=== PATIENT | female | born 1980 | race Caucasian/White ===

== ENCOUNTER 2021-01-11 10:32 | Outpatient (CLI) | payer BC, SELFPAY ==
--- NOTE | 2021-01-11 12:00 | NEURO_ITS ---
Impression: # Complains of numbness of left lower extremity. # Normal nerve conduction study including F-waves . # Normal needle/EMG exam. # Clinical correlation recommended and other etiologies need to be considered. Nerve Conduction Studies Anti Sensory Summary Table Stim Site NR Peak (ms) P-T Amp (?V) Site1 Site2 Delta-P (ms) Dist (cm) Danny (m/s) Left Sup Fibular Anti Sensory (Ant Lat Mall) 14 cm 3.4 19.9 14 cm Ant Lat Mall 3.4 16.0 47 Right Sup Fibular Anti Sensory (Ant Lat Mall) 14 cm 3.5 9.6 14 cm Ant Lat Mall 3.5 16.0 46 Left Sural Anti Sensory (Lat Mall) Calf 3.9 6.6 Calf Lat Mall 3.9 16.0 41 Right Sural Anti Sensory (Lat Mall) Calf 4.0 9.4 Calf Lat Mall 4.0 16.0 40 Motor Summary Table Stim Site NR Onset (ms) O-P Amp (mV) Site1 Site2 Delta-0 (ms) Dist (cm) Danny (m/s) Left Peroneal Motor (Vastus Med) Ankle 4.1 1.6 Popit Ankle 7.4 37.0 50 Popit 11.5 1.5 Right Peroneal Motor (Vastus Med) Ankle 3.8 1.7 Popit Ankle 7.5 35.0 47 Popit 11.3 1.5 Left Tibial Motor (Abd Ballard Brev) Ankle 4.1 3.6 Knee Ankle 8.8 41.0 47 Knee 12.9 0.6 Right Tibial Motor (Abd Ballard Brev) Ankle 4.1 3.9 Knee Ankle 8.2 38.0 46 Knee 12.3 5.0 F Wave Studies NR F-Lat (ms) L-R F-Lat (ms) Left Peroneal (Mrkrs) (EDB) 53.57 0.35 Right Peroneal (Mrkrs) (EDB) 53.92 0.35 Left Tibial (Mrkrs) (Abd Hallucis) 54.10 0.52 Right Tibial (Mrkrs) (Abd Hallucis) 54.61 0.52 EMG Side Muscle Nerve Root Ins Act Fibs Amp Dur Recrt Comment Right AntTibialis Dp Br Fibular L4-5 Nml Nml Nml Nml Nml Right Gastroc Tibial S1-2 Nml Nml Nml Nml Nml Right Fibularis Long Sup Br Fibular L5-S1 Nml Nml Nml Nml Nml Right Flex Dig Long Tibial L5-S2 Nml Nml Nml Nml Nml Right Ext Dig Brev Dp Br Fibular L5, S1 Nml Nml Nml Nml Nml Left AntTibialis Dp Br Fibular L4-5 Nml Nml Nml Nml Nml Left Gastroc Tibial S1-2 Nml Nml Nml Nml Nml Left Fibularis Long Sup Br Fibular L5-S1 Nml Nml Nml Nml Nml Left Flex Dig Long Tibial L5-S2 Nml Nml Nml Nml Nml Left Ext Dig Brev Dp Br Fibular L5, S1 Nml Nml Nml Nml Nml MTDD
== END 2021-01-11 10:33 | disposition home or self-care (01) ==
LOC: ANHNEURO 10:34
PROVIDERS: PCP Family Medicine; Visit Provider Physician Assistant
DX: R20.0 Anesthesia of skin (principal); R20.2 Paresthesia of skin
CPT/HCPCS: 95886; 95910

== ENCOUNTER → 2021-04-29 07:25 | Outpatient (CLI) | payer BC, SELFPAY ==
--- NOTE | ~2021-04-29 | US_ITS ---
EXAMINATION: US venous doppler [facility] DATE: 04/29/2021 08:00 INDICATION: Left lower limb pain and swelling TECHNIQUE: Nichole scale images without and with compression and Doppler images of the left lower extrem ity veins were obtained. COMPARISON: 06/02/2004 FINDINGS: The left common femoral vein, profunda femoral vein, femoral vein, popliteal vein, peroneal trunk, posterior tibial veins, and greater saphenous vein are patent. IMPRESSION: 1. Patent left lower extremity veins. No evidence of deep venous thrombosis. Reviewed, dictated and finalized at location A.
== END ==
PROVIDERS: PCP Family Medicine; Visit Provider Physician Assistant
DX: M79.605 Pain in left leg (principal)
CPT/HCPCS: 93971

== ENCOUNTER → 2021-09-12 15:36 | Outpatient (CLI) | payer BC, SELFPAY ==
--- NOTE | ~2021-09-12 | MM_ITS ---
EXAMINATION: MM screening sami BI w andrea HISTORY: Screening TECHNIQUE: Craniocaudal and mediolateral oblique 3-D tomosynthesis images were obtained and synthetic 2-D images were generated. CAD analysis was submitted and interpreted. COMPARISON: No prior mammogram is available for comparison at this institution. BREAST PARENCHYMAL COMPOSITION: Breast composed of scattered areas of fibroglandular density FINDINGS: There are bilateral breast asymmetries centered in the upper outer quadrants of both breast s. There are no suspicious calcifications. IMPRESSION: 1. Bilateral breast asymmetries. 2. Additional mammographic views and possible breast ultrasound are recommended. BI-RADS Category 0: Incomplete: Needs additional imaging evaluation. Reviewed, dictated and finalized at location A. IMPRESSION: 1. Bilateral breast asymmetries. 2. Additional mammographic views and possible breast ultrasound are recommended . BI-RADS Category 0: Incomplete: Needs additional imaging evaluation.
== END ==
PROVIDERS: Visit Provider Obstetrics & Gynecology
DX: Z12.31 Encounter for screening mammogram for malignant neoplasm of breast (principal); R92.8 Other abnormal and inconclusive findings on diagnostic imaging of breast
CPT/HCPCS: 77063; 77067

== ENCOUNTER → 2021-10-20 08:07 | Outpatient (CLI) | payer BC, SELFPAY ==
--- NOTE | ~2021-10-20 | MMUS_ITS ---
EXAMINATION: MM diagnostic sami BI w andrea, US breast BI limited HISTORY: Follow-up breast asymmetries TECHNIQUE: Additional 3-D tomosynthesis images of the breasts were performed and synthetic 2-D images were generated. CAD analysis was submitted and interpreted. High resolution limited bilateral breast ultrasound was performed. COMPARISON: 09/12/2021 BREAST PARENCHYMAL COMPOSITION: Breast composed of scattered areas of fibroglandular density. FINDINGS: MAMMOGRAPHIC FINDINGS: There is a mass in the upper outer quadrant of the right breast measuring approximately 12 mm. There are no suspicious masses, calcifications or architectural distortion in the left breast to suggest ma lignancy. ULTRASOUND: Limited right breast ultrasound: At 10:00, 3 cm from the nipple, there is an 8 mm cyst. At 10:00, 4 c m from the nipple there is an 8 mm cyst. No suspicious sonographic abnormalities of the right breast to suggest malignancy. Limited left breast ultrasound: At 2:00, 1 cm from the nipple there is a 3 mm cyst. At 5:00, 3 cm fro m the nipple there is a 6 mm cyst. No suspicious masses to suggest malignancy. IMPRESSION: 1. No evidence for malignancy in either breast. Benign findings. 2. Routine yearly screening mammogram and regular clinical breast examination are recommended. BI-RADS Category 2: Benign finding(s). Reviewed, dictated and finalized at location A. OGRAPH DESIGNER IMPRESSION: 1. No evidence for malignancy in either breast. Benign findings. 2. Routine yearly screening mammogram and regular clinical breast examination a re recommended. BI-RADS Category 2: Benign finding(s).
== END ==
PROVIDERS: Visit Provider Obstetrics & Gynecology
DX: R92.8 Other abnormal and inconclusive findings on diagnostic imaging of breast (principal)
CPT/HCPCS: 76642; 77062; 77066; G0279

== ENCOUNTER 2022-03-13 08:21 | Outpatient (CLI) | payer BC, SELFPAY ==
--- NOTE | ~2022-03-13 | XR_ITS ---
EXAMINATION: XR foot LT min 3V DATE: 03/13/2022 08:41 INDICATION: Left foot pain TECHNIQUE: Dorsoplantar, lateral, and 2 oblique views of the left foot were obtained. COMPARISON: None FINDINGS: Bone alignment is normal. There is no fracture. There is mild osteoarthritis at the first m etatarsophalangeal joint as well as several interphalangeal joints. Posterior and plantar calcaneal d espite are noted. The soft tissues are unremarkable. IMPRESSION: 1. No acute osseous abnormality. Reviewed, dictated and finalized at location A.
== END 2022-03-13 08:22 | disposition home or self-care (01) ==
PROVIDERS: PCP Family Medicine; Visit Provider Nurse Practitioner Gerontology
DX: M79.672 Pain in left foot (principal)
CPT/HCPCS: 73630

== ENCOUNTER → 2022-04-20 14:15 | Outpatient (CLI) | payer BC, SELFPAY ==
--- NOTE | ~2022-04-20 | XR_ITS ---
XR knee LT 3V DATE: 04/20/2022 14:31 INDICATION: Left knee effusion TECHNIQUE: Hankins and standing AP and PA views COMPARISON: None FINDINGS: There is moderate moderate loss of height of the medial compartment joint space. Lateral co mpartment joint space is well preserved. There is minimal periarticular spurring of the patella. There is minimal superior pole patellar enthe sopathy at the quadriceps tendon insertion. No fracture or dislocation, periosteal reaction or bone destruction. Small suprapatellar knee joint e ffusion may be present. No radiopaque intra-articular loose body or chondrocalcinosis. IMPRESSION: Possible small suprapatellar knee joint effusion Mild patellofemoral and medial compartment osteoarthritis Reviewed, dictated and finalized at location A.
== END ==
PROVIDERS: PCP Family Medicine; Visit Provider Family Medicine
DX: M25.462 Effusion, left knee (principal); M17.12 Unilateral primary osteoarthritis, left knee
CPT/HCPCS: 73562

== ENCOUNTER 2022-08-24 08:01 | Outpatient (CLI) | payer BC, SELFPAY ==
--- NOTE | ~2022-08-24 | US_ITS ---
EXAMINATION:US venous doppler LE LT INDICATION:Varicose veins. Lower extremity pain. TECHNIQUE: Multiple grayscale, color flow and Doppler images of the left lower extremity deep venous systems were obtained and reviewed. COMPARISON:04/29/2021 FINDINGS: The common femoral, superficial femoral and popliteal veins demonstrate normal respiratory variation, augmentation and compressibility. Color flow is also seen within the posterior tibial, pe roneal, greater saphenous and profunda veins. IMPRESSION: 1: No lower extremity deep venous thrombosis. Reviewed, dictated and finalized at location A.
== END 2022-08-24 08:02 | disposition home or self-care (01) ==
PROVIDERS: PCP Family Medicine
DX: I83.813 Varicose veins of bilateral lower extremities with pain (principal); Z48.812 Encounter for surgical aftercare following surgery on the circulatory system
CPT/HCPCS: 93971

== ENCOUNTER 2022-08-31 07:54 | Outpatient (CLI) | payer BC, SELFPAY ==
--- NOTE | ~2022-08-31 | US_ITS ---
EXAMINATION: US venous doppler [facility] DATE: 08/31/2022 08:27 INDICATION: Varicose veins of both lower extremities. TECHNIQUE: Grayscale ultrasound images without and with compression and Doppler ultrasound images of the left lower extremity veins were obtained. COMPARISON: Ultrasound 08/24/2022, 04/29/2021 FINDINGS: The visualized portions of left common femoral vein, profunda (deep) femoral vein, femoral vein, popl iteal vein, peroneal veins, and posterior tibial veins are patent. There is total occlusion of left g reater saphenous vein from the proximal thigh to the distal thigh. IMPRESSION: 1. 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 2. No deep venous thrombosis. Reviewed, dictated and finalized at location A. IMPRESSION: 1. 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 2. No deep venous thrombosis.
== END 2022-08-31 07:55 | disposition home or self-care (01) ==
PROVIDERS: PCP Family Medicine
DX: I83.93 Asymptomatic varicose veins of bilateral lower extremities (principal); I82.492 Acute embolism and thrombosis of other specified deep vein of left lower extremity
CPT/HCPCS: 93971

== ENCOUNTER 2022-10-16 01:49 | Day surgery (SDC) | payer BC, SELFPAY ==
[2022-10-03 13:14] VITALS: BMI 34.3
--- NOTE | 2022-10-16 08:11 | WPDANESEPPF ---
Anes - Initial Pre Proc Eval Procedure: Operation Date: 10/16/22 11:00 Proposed Procedures p Esophagogastroduodenoscopy EGD - Alcides Madison MD Date/Time: 10/16/22 08:11 Surgeon: Alcides Madison MD Pre Op Diagnosis: dysphagia Patient Data Age: 42 Gender: F Height: 1.6 m Weight: 88 kg Allergies Allergy/AdvReac Type Severity Reaction Status Date / Time hydroxychloroquine Allergy Mild rash Verified 10/16/22 09:37 sulfamethizole Allergy Unknown yeast Verified 10/16/22 09:37 infections trimethoprim Allergy Unknown yeast Verified 10/16/22 09:37 infections Home Medications Medication Instructions Recorded Confirmed Type folic acid 1 mg tablet 1 mg PO DAILY 12/12/20 10/16/22 History methotrexate sodium 2.5 mg tablet 2.5 mg PO WEEKLY 12/12/20 10/16/22 History pantoprazole 40 mg tablet,delayed 40 mg PO QAM #30 tabs 09/12/22 10/16/22 Rx release Patient hx anesthesia problems: none Family hx anesthesia problems: none Results Review: All pre-operative results and documents have been reviewed as part of the pre-operative evaluation. [facility] Past Medical History Medical History Calcaneal apophysitis Claustrophobia Contusion of bone Crepitus of joint of left knee Foot pain, left Heel pain Knee crepitus Knee injury Left elbow pain Left knee pain Left knee sprain Mood swings Pain of left heel Pain of right sacroiliac joint Rheumatoid arthritis Swelling of knee joint, left Varicose veins of left lower extremity Surgical History Surgical History History of x2 History of lymph node excision 1996 (neck) History of tonsillectomy 1984 History of tubal ligation 2014 Social History Social History Social History: Smoking packs per day: 0.5 Smoking cigarettes per day: 10.0 Years smoked: 5 Smoking pack-years: 2.50 Smoking status: Former smoker Tobacco type: cigarettes Second hand tobacco smoke exposure: No Smoking end date: 11/11/05 Alcohol intake: current Drinks per week: 2 Substance use: never Substance use type: does not use Living arrangements: with family Gender identity (if verbalized by the patient): Female Sexual Orientation (if Verbalized by the Patient): Straight or Heterosexual Spiritual care concerns: No Anes - Eval Final PreProcedure Day of Procedure 10/16/22 08:11 Patient weight: obese Heart: regular rate and rhythm Lungs: clear to auscultation Airway: Mallampati scale class II Neurological: alert and oriented Last oral intake: >/= 8 hours ASA classification: II Emergent: no Anesthetic plan: proceed Anesthesia type and monitoring: general GIVS and standard monitoring Results Review: All pre-operative results and documents have been reviewed as part of the pre-operative evaluation. Informed Consent: The patient's anesthetic plan and its attendant risks and benefits were discussed with the patient/family/POA. Questions were solicited and answers provided to the satisfaction of the patient/family/POA.
[2022-10-16 09:35] VITALS: BP 147/96; PULSE 79; RESP 20; TEMP 36.3; O2SAT 99; BMI 36.6
[2022-10-16] MEDS: LACTATED RINGERS 1,000 ML 150 ML IV CONT (09:52)
--- NOTE | 2022-10-16 10:26 | PM.HPGS ---
History of Present Illness History of Present Illness Consent: Risks, benefits, and alternatives have been discussed and questions answered. Patient agrees to proceed with procedure. Chief complaint: dysphagia Narrative: Maddy Jolly is a 42 year old female with heartburn and lately dysphagia, never had egd, using tums prn. She only tried pantoprazole for couple of days I am not good at taking pills . Review of Systems Constitutional: Constitutional: Denies headache(s) and Denies weakness Eyes: Eyes: Denies blurry vision ENT: Reports Normal hearing present, Denies headache(s) and Denies neck pain Cardiovascular: Cardiovascular: Denies chest pain and Denies dyspnea Respiratory: Respiratory: Denies dyspnea Gastrointestinal: Gastrointestinal: Reports no additional gastrointestinal complaints Genitourinary: Genitourinary: Denies dysuria Musculoskeletal: Musculoskeletal: Denies neck pain Integumentary/Breasts: Skin/Breast: Denies dry skin Neurologic: Reports Normal hearing present, Denies headache(s) and Denies weakness Psychiatric: Psychiatric: Denies anxiety Endocrine: Endocrine: Denies change in body appearance Hematologic/Lymphatic: Hematologic/Lymphatic: Denies easy bleeding Allergic/Immunologic: Allergic/Immunologic: Denies urticaria PMFSH Past Medical History Medical History (Updated 10/16/22 @ 10:27 by Alcides Madison MD) Calcaneal apophysitis Claustrophobia Contusion of bone Crepitus of joint of left knee Foot pain, left GERD (gastroesophageal reflux disease) Heel pain Knee crepitus Knee injury Left elbow pain Left knee pain Left knee sprain Mood swings Pain of left heel Pain of right sacroiliac joint Rheumatoid arthritis Swelling of knee joint, left Varicose veins of left lower extremity Surgical History Surgical History History of x2 History of lymph node excision 1996 (neck) History of tonsillectomy 1984 History of tubal ligation 2014 Social History Social History Social History: Smoking packs per day: 0.5 Smoking cigarettes per day: 10.0 Years smoked: 5 Smoking pack-years: 2.50 Smoking status: Former smoker Tobacco type: cigarettes Second hand tobacco smoke exposure: No Smoking end date: 11/11/05 Alcohol intake: current Drinks per week: 2 Substance use: never Substance use type: does not use Living arrangements: with family Gender identity (if verbalized by the patient): Female Sexual Orientation (if Verbalized by the Patient): Straight or Heterosexual Spiritual care concerns: No Meds Home Medications and Allergies Home Medications Medication Instructions Recorded Confirmed Type folic acid 1 mg tablet 1 mg PO DAILY 12/12/20 10/16/22 History methotrexate sodium 2.5 mg tablet 2.5 mg PO WEEKLY 12/12/20 10/16/22 History pantoprazole 40 mg tablet,delayed 40 mg PO QAM #30 tabs 09/12/22 10/16/22 Rx release Allergies Allergy/AdvReac Type Severity Reaction Status Date / Time hydroxychloroquine Allergy Mild rash Verified 10/16/22 09:37 sulfamethizole Allergy Unknown yeast Verified 10/16/22 09:37 infections trimethoprim Allergy Unknown yeast Verified 10/16/22 09:37 infections Vital Signs Vital Signs - 24 hr 10/16/22 09:35 Temperature 97.4 F L Pulse Rate 79 Respiratory Rate 20 Blood Pressure 147/96 H Pulse Oximetry 99 Oxygen Delivery Room Air Exam Const: General: comfortable and no acute distress HENMT: Face/Nose/Sinus: Normal nares present Eyes: General: appearance normal, both eyes and all related structures Neck: Neck: no JVD Resp: Auscultation: clear to auscultation bilaterally Cardio: Rate: regular rate Rhythm: regular rhythm GI: Inspection: non-distended GI Palp: Yes Soft to palpation Skin: General skin exam: normal color Neuro:
[2022-10-16 10:42] VITALS: BP 130/92; PULSE 74; RESP 17; O2SAT 98
[2022-10-16 10:52] VITALS: BP 127/89; PULSE 66; RESP 19; O2SAT 100
[2022-10-16 11:02] VITALS: BP 129/94; PULSE 67; RESP 20; O2SAT 100
== END 2022-10-16 11:21 | disposition home or self-care (01) ==
PROVIDERS: PCP Family Medicine; Visit Provider Internal Medicine Gastroenterology
PROC: 0DJ08ZZ Inspection of Upper Intestinal Tract, Via Natural or Artificial Opening Endoscopic (ICD-10-PCS; CPT 43235; principal; 2022-10-16 11:00)
DX: K21.00 Gastro-esophageal reflux disease with esophagitis, without bleeding (principal); K44.9 Diaphragmatic hernia without obstruction or gangrene; K29.70 Gastritis, unspecified, without bleeding; R13.10 Dysphagia, unspecified; M06.9 Rheumatoid arthritis, unspecified; Z87.891 Personal history of nicotine dependence; E66.9 Obesity, unspecified; Z68.36 Body mass index [BMI] 36.0-36.9, adult
CPT/HCPCS: 43239; 88305; J2704; J3010; J7120

== ENCOUNTER → 2022-12-28 07:26 | Outpatient (CLI) | payer BC, SELFPAY ==
--- NOTE | ~2022-12-28 | MM_ITS ---
EXAMINATION: MM screening sami BI w andrea HISTORY: Screening mammogram TECHNIQUE: Craniocaudal and mediolateral oblique 3-D tomosynthesis images were obtained and synthetic 2-D images were generated. CAD analysis was submitted and interpreted. COMPARISON: 10/20/2021 diagnostic bilateral mammogram and Limited bilateral breast ultrasound examina tion 09/12/2021 bilateral screening mammogram BREAST PARENCHYMAL COMPOSITION: There are scattered areas of fibroglandular density. FINDINGS: Approximately 1.3 cm circumscribed opacity with halo sign at mid depth in the outer mid to upper right breast; the mammographic appearance is benign, likely due to cyst. A cyst was documented at this location on 10/20/2021 ultrasound examination. There is no evidence of suspicious mass, calcification, or architectural distortion to suggest malig betty in either breast. There has been no suspicious interval change. IMPRESSION: 1. Enlarging circumscribed mass in upper outer quadrant of right breast with benign features, includi ng halo sign, most consistent with interval enlargement of a simple cyst 2. Annual mammographic screening is recommended BI-RADS Category 2: Benign finding(s). Reviewed, dictated and finalized at location A. NG MACHINE OPERATOR IMPRESSION: 1. Enlarging circumscribed mass in upper outer quadrant of right breast with be nign features, including halo sign, most consistent with interval enlargement o f a simple cyst 2. Annual mammographic screening is recommended BI-RADS Category 2: Benign finding(s).
== END ==
PROVIDERS: PCP Family Medicine; Visit Provider Obstetrics & Gynecology
DX: Z12.31 Encounter for screening mammogram for malignant neoplasm of breast (principal)
CPT/HCPCS: 77063; 77067

== ENCOUNTER → 2023-05-16 13:19 | Outpatient (CLI) | payer BC, SELFPAY ==
--- NOTE | ~2023-05-16 | US_ITS ---
EXAMINATION: US venous doppler [facility] DATE: 05/16/2023 13:45 INDICATION: Left lower limb swelling. TECHNIQUE: Grayscale ultrasound images without and with compression and Doppler ultrasound images of the left lower extremity veins were obtained. COMPARISON: Ultrasound 08/31/2022 FINDINGS: The visualized portions of left common femoral vein, profunda (deep) femoral vein, femoral vein, popl iteal vein, peroneal veins, and posterior tibial veins are patent. There are changes of left greater saphenous vein ablation with total occlusion. IMPRESSION: 1. No deep venous thrombosis. 2. 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 Reviewed, dictated and finalized at location A.
== END ==
PROVIDERS: PCP Family Medicine; Visit Provider Physician Assistant
DX: M79.89 Other specified soft tissue disorders (principal); I82.812 Embolism and thrombosis of superficial veins of left lower extremity
CPT/HCPCS: 93971

== ENCOUNTER → 2023-12-13 07:08 | Outpatient (CLI) | payer BC, SELFPAY ==
--- NOTE | ~2023-12-13 | XR_ITS ---
Right Shoulder Technique: AP and axillary views were obtained. Clinical History: Pain Findings: No fracture or dislocation is seen. Osseous alignment is anatomic. The glenohumeral and acr omioclavicular joint spaces are preserved. Soft tissues are unremarkable. Impression: Unremarkable right shoulder radiographs. Reviewed, dictated and finalized at [facility]. LAYER Impression: Unremarkable right shoulder radiographs.
== END ==
PROVIDERS: PCP Physician Assistant; Visit Provider Physician Assistant
DX: M25.511 Pain in right shoulder (principal)
CPT/HCPCS: 73030

== ENCOUNTER → 2023-12-18 07:08 | Outpatient (CLI) | payer BC, SELFPAY ==
--- NOTE | ~2023-12-18 | MR_ITS ---
MRI of the right shoulder Technique: Axial proton-density fat-sat images, coronal proton density fat-sat and T2 fat-sat images, and sagittal T1-weighted and T2 fat-sat images were acquired. Clinical History: Pain Findings: There is mild AC joint degenerative change, mild bony productive change at the distal clavi charan. No significant subacromial spur. Coracoclavicular, coracoacromial, and coracohumeral ligaments a re intact. Supraspinatus and infraspinatus tendons are intact, without partial or full-thickness tear. There is minimal tendinosis. Subscapularis tendon intact, with mild tendinosis. Tendon of the long head of the biceps is intact. No labral tear identified. Inferior glenohumeral ligament is intact. No degenerative change or effusion of the glenohumeral join t. No fluid distention of the subacromial/subdeltoid bursa. No muscle atrophy or edema. Impression: Mild rotator cuff tendinosis. Mild AC joint degenerative change. Reviewed, dictated and finalized at location . ER ALL ROUND Impression: Mild rotator cuff tendinosis. Mild AC joint degenerative change.
== END ==
PROVIDERS: PCP Physician Assistant; Visit Provider Physician Assistant
DX: M19.011 Primary osteoarthritis, right shoulder (principal)
CPT/HCPCS: 73221

== ENCOUNTER → 2024-01-03 12:19 | Outpatient (CLI) | payer BC, SELFPAY ==
--- NOTE | ~2024-01-03 | MM_ITS ---
EXAMINATION: MM screening sami BI w andrea HISTORY: Screening TECHNIQUE: Craniocaudal and mediolateral oblique 3-D tomosynthesis images were obtained and synthetic 2-D images were generated. CAD analysis was submitted and interpreted. COMPARISON: Comparison to multiple prior studies sequentially, with oldest reviewed study dated 12/2020. BREAST PARENCHYMAL COMPOSITION: Not dense: There are scattered areas of fibroglandular density. FINDINGS: There is an enlarging mass in the upper outer quadrant of the right breast. The left breast is stable without evidence for malignancy. IMPRESSION: 1. Enlarging right breast mass. 2. Additional mammographic views and possible breast ultrasound are recommended. BI-RADS Category 0: Incomplete: Needs additional imaging evaluation. Reviewed, dictated and finalized at location A. ATIONAL INTERPRETER IMPRESSION: 1. Enlarging right breast mass. 2. Additional mammographic views and possible breast ultrasound are recommended . BI-RADS Category 0: Incomplete: Needs additional imaging evaluation.
== END ==
PROVIDERS: PCP Obstetrics & Gynecology; Visit Provider Obstetrics & Gynecology
DX: Z12.31 Encounter for screening mammogram for malignant neoplasm of breast (principal); R92.8 Other abnormal and inconclusive findings on diagnostic imaging of breast
CPT/HCPCS: 77063; 77067

== ENCOUNTER 2024-02-03 08:27 | Outpatient (CLI) | payer BC, SELFPAY ==
--- NOTE | ~2024-02-03 | MMUS_ITS ---
EXAMINATION: MM diagnostic sami RT w andrea, US breast RT limited HISTORY: Enlarging mass reported in upper outer quadrant of right breast on January 03, 2024 bilater al screening mammogram TECHNIQUE: Additional 3-D tomosynthesis images of the right breast were performed and synthetic 2-D i mages were generated. CAD analysis was submitted and interpreted. High resolution upper outer quadran t right breast ultrasound was performed. COMPARISON: January 03, 2024, December 28, 2022 bilateral screening mammogram examinations FINDINGS: MAMMOGRAPHIC FINDINGS: Approximately 1.5 x 1.7 cm circumscribed mass with halo sign is noted in the upper outer quadrant of the right breast, benign in appearance, likely a cyst. Approximately 5.4 x 7.2 mm circumscribed mass with halo sign is suggested in the central right breast 5.5 cm deep to the nipple, also likely a cyst. ULTRASOUND: 12:00 2 cm from nipple: 4.5 x 7.5 x 8 mm parallel circumscribed sonolucency, consistent with simple c yst 10:00 4 cm from nipple: Parallel circumscribed sonolucency measuring 8.6 x 17.5 mm, with through reyna smission posterior enhancement, consistent with simple cyst. No suspicious mass or shadowing is detected. IMPRESSION: 1. Benign cysts 2. Routine annual mammographic screening is recommended BI-RADS Category 2: Benign finding(s). Reviewed, dictated and finalized at location A. IMPRESSION: 1. Benign cysts 2. Routine annual mammographic screening is recommended BI-RADS Category 2: Benign finding(s).
== END 2024-02-03 08:28 ==
LOC: MICIMG 08:28
PROVIDERS: PCP Obstetrics & Gynecology; Visit Provider Obstetrics & Gynecology
DX: R92.8 Other abnormal and inconclusive findings on diagnostic imaging of breast (principal); N60.11 Diffuse cystic mastopathy of right breast
CPT/HCPCS: 76642; 77061; 77065; G0279

== ENCOUNTER 2024-04-30 00:12 | Day surgery (SDC) | payer BC, SELFPAY ==
[2024-04-21 12:58] VITALS: BMI 37.2
--- NOTE | 2024-04-21 12:59 | PC.NURSE ---
Report to the Outpatient Waiting Room, entrance under the green pavilion located off [facility], at time _11:00__ on date _04/30/24__. Planned Procedure Time: _1300__. Time changes happen often and if your time is changed the preop area will call you the afternoon before. - You and your visitor will be asked to self-screen and do not enter if you have any COVID symptoms. - A mask is optional within the hospital at this time. Patients may have clear liquids (water, carbonated beverages, clear teas, apple juice) until 3 hours prior to surgery with a maximum of 20 ounces. - No food from midnight until time of surgery - Infants may have breast milk until 4 hours before surgery, formula 6 hours prior to surgery. - Children will be allowed to drink immediately following surgery. If applicable, please bring a bottle or sippy cup to assist with drinking. Juice, water, soda, and popsicles are readily available. For infants on formula, please bring formula the day of surgery. Pacifiers are allowed. Take the following medications with a SIP of water the morning of surgery: _none___ DO NOT STOP ANY OF YOUR OTHER PRESCRIPTION MEDICATIONS PRIOR TO SURGERY ?EXCEPT THE FOLLOWING Medications to discontinue per physician _vitamins and supplements 3 days prior Date to take last dose Please no make-up, nail algerian, hairspray, perfume, deodorant, or body powder the day of surgery. No jewelry (including any body piercings) or valuables the day of surgery, leave them at home. Please take a shower or bath the night before, or the morning of, surgery with an antibacterial soap. Wear comfortable, loose fitting clothing. Children are encouraged to wear pajamas. - Jewelry must be removed prior to entering the operating room. Rings and piercings that are not removed may be cut off. - The hospital will not accept responsibility for valuables. - Please leave all valuables, including medications, at home the day of surgery. If you are going home after surgery, a licensed rental car ferry driver must drive you home. - NO public transportation without another adult if you receive anesthesia. - We recommend that an adult stay with you for 24 hours following discharge. - We also recommend that you do not drive, make important decision, drink alcoholic beverages, or take any drugs that were not prescribed by your health care provider for at least 24 hours after your discharge time. For Pediatric surgeries, we recommend two adults accompany the child home. Follow any additional instructions given to you from your surgeon. If you or anyone in your household have experienced Covid symptoms in the past week, please notify your surgeon or the nurse liaison at the phone number below for possible testing. Telephone instructions given to _patient___and asked if any additional questions and then verbalized understanding. Patient advised to call surgeon office or pre surgery nurse liaison [phone] if any additional questions.
[2024-04-30] VITALS (7 sets, daily range): BP systolic 93–135; BP diastolic 45–82; PULSE 65–95; RESP 14–16; TEMP 37–37.1; O2SAT 98–100
[2024-04-30] MEDS: KETOROLAC 15 MG/ML VIAL (*BKC) IV PUSH (11:30)
[2024-04-30] MEDS: LACTATED RINGERS 1,000 ML 30 ML IV CONT ×2 (11:30→15:03)
[2024-04-30] MEDS: ACETAMINOPHEN 500 MG TABLET 1000 MG PO (11:30)
--- NOTE | 2024-04-30 12:35 | WPDHPUPDATE1 ---
History and Physical Update Update Date/Time: 04/30/24 12:35 History and Physical has been reviewed, including an updated exam of the patient. There are NO changes in the patient's condition. Risks, benefits, and alternatives have been discussed and questions answered. Patient agrees to proceed with procedure.
--- NOTE | 2024-04-30 13:03 | WPDANESEPPF ---
Anes - Initial Pre Proc Eval Procedure: Operation Date: 04/30/24 13:00 Proposed Procedures p Right Shoulder Arthroscopic Subacromial Decompression - Jhoan Tay MD Date/Time: 04/30/24 13:03 Surgeon: Jhoan Tay MD Pre Op Diagnosis: right shoulder impingement syndrome Patient Data Age: 44 Gender: F Height: 1.6 m Weight: 96.2 kg Last Vital Signs Temp 98.6 F 04/30/24 11:30 Pulse 95 04/30/24 11:30 Resp 14 04/30/24 11:30 BP 129/82 04/30/24 11:30 Pulse Ox 100 04/30/24 11:30 O2 Del Method Room Air 04/30/24 11:30 Allergies Allergy/AdvReac Type Severity Reaction Status Date / Time hydroxychloroquine Allergy Mild rash Verified 04/30/24 11:43 sulfamethizole Allergy Unknown yeast Verified 04/30/24 11:43 infections trimethoprim Allergy Unknown yeast Verified 04/30/24 11:43 infections Home Medications Medication Instructions Recorded Confirmed Type folic acid 1 mg tablet 1 mg PO DAILY 12/12/20 04/21/24 History methotrexate sodium 2.5 mg tablet 20 mg PO WEEKLY 12/12/20 04/21/24 History Patient hx anesthesia problems: none Family hx anesthesia problems: none Results Review: All pre-operative results and documents have been reviewed as part of the pre-operative evaluation. 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 Claustrophobia Contusion of bone Crepitus of joint of left knee Foot pain, left GERD (gastroesophageal reflux disease) Heel pain Knee crepitus Knee injury Left elbow pain Left knee pain Left knee sprain Mood swings Pain of left heel Pain of right sacroiliac joint Rheumatoid arthritis Swelling of knee joint, left Varicose veins of left lower extremity Surgical History Surgical History History of x2 History of lymph node excision 1996 (neck) History of tonsillectomy 1984 History of tubal ligation 2014 Social History Social History Social History: Smoking packs per day: 0.5 Smoking cigarettes per day: 10.0 Years smoked: 3 Smoking pack-years: 1.50 Smoking status: Former smoker Tobacco type: cigarettes Second hand tobacco smoke exposure: No Smoking end date: 11/11/05 Alcohol intake: current Drinks per week: 3 Substance use: never Substance use type: does not use Last use: 2003 Do You Feel Safe in your Home?: Yes Lack of Transportation: No Lack of Food: Never True Current Housing: I Have Housing Concerned About Future Housing: No Difficulty Paying Gas/Electric Bills: No Difficulty Paying for Meds: No Currently Unemployed: No Education: High School Diploma/GED Difficulty w/ Childcare or Family Care: No Living arrangements: with family Occupation/Education: occupation Gender identity (if verbalized by the patient): Female Sexual Orientation (if Verbalized by the Patient): Straight or Heterosexual Spiritual care concerns: No Anes - Eval Final PreProcedure Day of Procedure 04/30/24 13:03 Patient weight: obese Heart: regular rate and rhythm Lungs: clear to auscultation Airway: Mallampati scale class 1 Neurological: alert and oriented Last oral intake: >/= 8 hours ASA classification: II Emergent: no Anesthetic plan: proceed Anesthesia type and monitoring: general ETT and standard monitoring Results Review: All pre-operative results and documents have been reviewed as part of the pre-operative evaluation. Pt active but does not exercise regularly, no cp or sob w walking up hills, short distances. Informed Consent: The patient's anesthetic plan and its attendant risks and benefits were discussed with the patient/family/POA. Questions were solicited and answers provided to the satisfaction of the patient/family
[2024-04-30] MEDS: ceFAZolin 2 GM/D5W 50 ML 2 GM/50 ML BAG IVPB (13:29)
[2024-04-30] MEDS: EPINEPHrine HCL INJ 1 MG/ML AMPUL IRRIGATION (14:11)
[2024-04-30] MEDS: BUPIVACAINE/EPINEPHRINE 0.5% 10 ML VIAL 30 ML INFILTRATE (14:12)
--- NOTE | 2024-04-30 14:58 | W.PM.PROC2 ---
Procedure Note - Detailed Date of Procedure 04/30/24 Pre-op Diagnosis Right shoulder impingement syndrome Post-op Diagnosis Same Procedure Performed Right shoulder Arthroscopic subacromial decompression Surgeon Jhoan Tay MD Manager Compensation Adilene Triplett PA-C Anesthesia General and Regional ( interscalene block) Findings Impingement lesion at the lateral supraspinatus with minimal low grade fraying. Type 2 acromion treated with acromioplasty and CA ligament release. Description of Procedure Preoperative antibiotics were given. An interscalene block was administered in the preoperative area. The patient was bought brought to the operating room. A general anesthetic was administered. The patient was carefully positioned in the beach chair position. The head and neck were carefully positioned. The non operative extremity was also carefully positioned. The shoulder was prepped and draped in the usual sterile fashion. Examination was performed. Standard posterior and anterior arthroscopic portals were established. Inflow achieved with the arthroscopic pump using saline and epinephrine. The glenohumeral joint was carefully inspected. Minimal low grade fraying at the anterior supraspinatus. Attention was turned to the subacromial space. A complete bursectomy was performed. Minor fraying at the rotator cuff insertion appeared to be consistent with impingement at the lateral acromion. This was gently debrided. An accessory lateral portal was created. The acromion was clearly visualized. The coracoacromial ligament was released. Careful acromioplasty was performed utilizing views from both lateral and posterior. Loose bone fragments were carefully irrigated from the joint. The arthroscopic instruments were removed. The wounds were closed with 3-0 Monocryl subcuticular suture and steri strips. There were no complications. A sling was applied and the patient brought to the recovery room. Physician clinical nursing assistant, Adilene Triplett PA-C, required for surgery; including patient positioning, draping, arthroscopic camera operation, maintaining instrument position, wound closure, and dressing and sling placement. Estimated Blood Loss 10 Pathology None sent Complications No immediate complications Condition Stable Disposition PACU [facility] Billing Surgery - Charge Forward: Surgery Billing
[2024-04-30] MEDS: ONDANSETRON INJ 4 MG/2 ML VIAL IV PUSH (15:55)
[2024-04-30] MEDS: oxyCODONE HCL (*CRX) 5 MG TAB IR PO (16:15)
== END 2024-04-30 16:50 | disposition home or self-care (01) ==
PROVIDERS: PCP Family Medicine; Visit Provider Orthopaedic Surgery
PROC: (CPT 29805; principal; 2024-04-30 13:00)
DX: M75.41 Impingement syndrome of right shoulder (principal); M75.81 Other shoulder lesions, right shoulder; M06.9 Rheumatoid arthritis, unspecified; Z79.631 Long term (current) use of antimetabolite agent; Z87.891 Personal history of nicotine dependence; E66.9 Obesity, unspecified; Z68.37 Body mass index [BMI] 37.0-37.9, adult
CPT/HCPCS: 29822; A4565; A9270; J0171; J0690; J1100; J1170; J1885; J2250; J2405; J2704; J3010; J7120

== ENCOUNTER 2025-03-26 12:35 | Outpatient (CLI) | payer BC, SELFPAY ==
--- NOTE | ~2025-03-26 | MM_ITS ---
EXAMINATION: MM screening [facility] HISTORY: Screening TECHNIQUE: Craniocaudal and mediolateral oblique 3-D tomosynthesis images were obtained and synthetic 2-D images were generated. CAD analysis was submitted and interpreted. COMPARISON: Comparison to multiple prior studies sequentially, with oldest reviewed study dated 12/2020. BREAST PARENCHYMAL COMPOSITION: Not dense: There are scattered areas of fibroglandular density. FINDINGS: There is a mass in the upper outer quadrant of the right breast, middle third which is unch anged. This was previously characterized as a simple cyst by ultrasound. There is no evidence of susp icious mass, calcification, or architectural distortion to suggest malignancy in either breast. There has been no suspicious interval change. IMPRESSION: 1. No mammographic evidence of malignancy. 2. Recommend routine screening mammography in one year. BI-RADS Category 2: Benign finding(s). Reviewed, dictated and finalized at location B.
== END 2025-03-26 12:36 | disposition home or self-care (01) ==
LOC: MICIMG 03-27 12:37
PROVIDERS: PCP Family Medicine; Visit Provider Obstetrics & Gynecology
DX: Z12.31 Encounter for screening mammogram for malignant neoplasm of breast (principal)
CPT/HCPCS: 77063; 77067